=== PATIENT | female | born 1975 | race Caucasian/White ===

== ENCOUNTER 2016-05-26 18:55 | Emergency (ER) | payer MEDICAID ==
[~2016-05-26] VITALS: Ht 152.4 cm; Wt 74.0 kg
[2016-05-26 19:35] VITALS: Ht 152.4 cm; Wt 74.0 kg
--- NOTE | 2016-05-26 21:07 | RADRPT ---
PROCEDURE: US OB. CLINICAL INDICATION: Pelvic pain. History of demise TECHNIQUE: Transabdominal and transvaginal views of the pelvis are available for review. COMPARISON: No prior studies are available for comparison. FINDINGS: The mean gestational sac diameter is 4.3 cm. The gestational sac is irregular. [place]-rump length:2.1 cm heart rate:None Ultrasound estimated gestational age: 9 weeks and 3 days A subchorionic hemorrhage is seen. No ovarian or adnexal mass lesion is seen. There is no free fluid. IMPRESSION: Single intrauterine without evidence of a heart rate, the findings of which are worr isome for demise which is consistent with the clinical history. Subchorionic hemorrhage. RPTAT: HPNM Physician Leland Date Time Electronically viewed and signed by Physician Leland on 05/26/2016 21:06 /
[2016-05-26 22:07] LABS: ADD SCAN DIFF NO
[2016-05-26 22:13] LABS: BASOPHIL # 0.1 10^3/ul (0.0-0.1); BASOPHILS % 0.8 % (0.0-2.0); EOSINOPHILS # 0.3 10^3/ul (0.0-0.5); EOSINOPHILS % 3.7 % (0.0-7.0); HEMATOCRIT 40.4 % (37.0-47.0); HEMOGLOBIN 13.5 g/dl (12.0-16.0); LYMPHOCYTES # 2.5 10^3/ul (0.8-2.9); LYMPHOCYTES % 33.9 % (15.0-51.0); MEAN CORPUSCULAR HEMOGLOBIN 29.4 pg (29.0-33.0); MEAN CORPUSCULAR HGB CONC 33.4 g/dl (32.0-37.0); MONOCYTE # 0.5 10^3/ul (0.3-0.9); NEUTROPHIL # 3.9 10^3/ul (1.6-7.5); NEUTROPHILS % 54.3 % (39.0-77.0); PLATELET COUNT 277 10^3/UL (140-415); RED BLOOD COUNT 4.59 10^6/ul (4.20-5.40); RED CELL DISTRIBUTION WIDTH 14.1 % (11.5-14.5); WHITE BLOOD COUNT 7.3 10^3/ul (4.8-10.8)
--- NOTE | 2016-05-26 22:17 | ERD ---
ER Documentation Chief Complaint Date/Time DATE: 05/26/16 TIME: 22:15 Chief Complaint Headache x3 days HPI Patient is a 40-year-old female who is A1 who presents to the ED for D/C She states that [facility] [place] [facility] and they were sent to go to [place] for D and C. She states that she was sent to go to [place] for D/C, but decided to come here instead because [place] was too far for them and they do not have a car. She states that her last normal menstrual period was 02/18/17. She denies any pelvic pain, vaginal bleeding. She denies abdominal pain, nausea, vomiting or diarrhea. She denies chest pain, cough, shortness of breath or difficulty breathing. Denies leg pain or swelling. No other complaints. ROS All systems reviewed and are negative except as per history of present illness. Allergies Allergies: Coded Allergies: No Known Allergy (Unverified , 05/26/16) PMhx/Soc Medical and Surgical Hx: pt denies Medical Hx, pt denies Surgical Hx Hx Alcohol Use: No Hx Substance Use: No Hx Tobacco Use: No Smoking Status: Never smoker FmHx Family History: No coronary disease, No diabetes, No other Physical Exam Vitals Vital Signs Date Time Temp Pulse Resp B/P Pulse Ox O2 Delivery O2 Flow Rate FiO2 05/26/16 19:35 98.7 70 18 126/62 99 Physical Exam GENERAL: Well-developed, well-nourished female. Appears in no acute distress. LUNG: Clear to auscultation bilaterally. No rhonchi, wheezing, rales or coarse breath sounds. HEART: Regular rate and rhythm. No murmurs, rubs or gallops. ABDOMEN: No scars, ecchymosis or rashes noted. Soft, nontender, and nondistended. Positive bowel sounds in all four quadrants. No rebound tenderness , no guarding. (-) McBurneys point tenderness. No CVA tenderness. BACK: No midline tenderness. Extremities: Equal pulses bilaterally. No peripheral clubbing, cyanosis or edema. No unilateral leg swelling. NEUROLOGIC: Alert and oriented. Moving all four extremities. 5/5 strength in all extremities. Normal speech. Steady gait. SKIN: Normal color. Warm and dry. No rashes or lesions. Capillary refill < 2 seconds Result Diagram: 05/26/160 Results 24 hrs Laboratory Tests Test 05/26/16 21:50 05/26/16 22:00 Basophils # 0.110^3/ul Basophils % 0.8% Beta HCG, Quantitative 215.8mIU/ml Eosinophils # 0.310^3/ul Eosinophils % 3.7% Hematocrit 40.4% Hemoglobin 13.5g/dl Lymphocytes # 2.510^3/ul Lymphocytes % 33.9% Mean Corpuscular Hemoglobin 29.4pg Mean Corpuscular Hemoglobin Concent 33.4g/dl Mean Corpuscular Volume 88.0fl Mean Platelet Volume 11.0fl Monocytes # 0.510^3/ul Monocytes % 7.0% Neutrophils # 3.910^3/ul Neutrophils % 54.3% Nucleated Red Blood Cells # 0.010^3/ul Nucleated Red Blood Cells % 0.0/100WBC Platelet Count 42662^3/UL Red Blood Count 4.5910^6/ul Red Cell Distribution Width 14.1% White Blood Count 7.310^3/ul Urine Bilirubin NEGATIVE Urine Clarity CLEAR Urine Color LT. YELLOW Urine Glucose NEGATIVE% Urine Hemoglobin 2+ Urine Ketones NEGATIVE Urine Leukocyte Esterase NEGATIVE Urine Microscopic RBC 2-5/HPF Urine Microscopic WBC 0-2/HPF Urine Nitrite NEGATIVE Urine Specific [place] 1.015 Urine Squamous Epithelial Cells FEW Urine Total Protein NEGATIVE Urine Urobilinogen 0.2 E.U./dL Urine pH 6.5 Procedures/MDM ER COURSE: I kept the patient and/or family informed of laboratory and diagnostic imaging results throughout the emergency room course. EKG, MONITORS, & DIAGNOSTIC IMAGING: [place] [id number] Radiology Main Line: [phone] DIAGNOSTIC IMAGING REPORT Patient: WENDY JEFFREY : 1975 Age: 40 Sex: F MR #: [id number] DOS: 05/26/162023 Ordering MD: KIMBERLY HANKS PA-C Location: E Room/Bed: PROCEDURE: US OB. CLINICAL INDICATION: Pelvic pain. History of demise TECHNIQUE: Transabdominal and transvaginal views of the pelvis are available for review. COMPARISON: No prior studies are available for comparison. FINDINGS: The mean gestational sac diameter is 4.3 cm. The gestational sac is irregular. [place]-rump length: 2.1 cm heart rate: None Ultrasound estimated gestational age: 9 weeks and 3 days A subchorionic hemorrhage is seen. No ovarian or adnexal mass lesion is seen. There is no free fluid. IMPRESSION: Single intrauterine without evidence of a heart rate, the findings of which are worrisome for demise which is consistent with the clinical history. Subchorionic hemorrhage. RPTAT: HPNM Physician Leland Date Time Electronically viewed and signed by Physician Leland on 05/26/2016 21 :06 / CC: KIMBERLY HANKS PA-C LAB INTERPRETATION: CBC showed no evidence of systemic infection or severe anemia. UA showed no evidence of leukocytes, nitrites or hematuria. Rh: O+, BHCG 215 MEDICAL DECISION MAKING: This is a 4-year-old female who is A1 who presents with ultrasound follow up and procedure. Vital signs were reviewed. Patient is afebrile. Patient is not hypoxic. Ultrasound as read by radiologist shows Single intrauterine without evidence of a heart rate, the findings of which are worrisome for demise which is consistent with the clinical history. Subchorionic hemorrhage. I spoke with Dr. Kelley, laborist computer education professor and reviewed all imaging studies with her. She states that patient can be sent outpatiently and to call her doctor at the clinic to schedule a D/C or to see if she can find a closer place. She stated that this procedure would not be done tonight and they are scheduled during the day. She can return sooner for any worsening symptoms, but that it would not be done tonight. Low suspicion for ovarian torsion, PID, tuboovarian abscess, ectopic , bowel obstruction, pyelonephritis, UTI, appendicitis, cervicitis, septic , molar , HELLP syndrome, preeclampsia, eclampsia, placenta previa, placenta abruptia. DISCHARGE: At this time, patient is stable for discharge and outpatient management with no new complaints during the ER course. Patient was sent home with instructions to call her OB doctor to schedule a closer D and C procedure. I had supervisor concrete block plant explaint ot patient the plan and she understood. Patient stated that she is asymptomatic right now. Patient can return to [facility] earlier for any worsening symptoms and can come during the day tomorrow for possible procedure. Patient is hemodynamically stable. Patient will be discharged home with instructions to recheck for new or worsening symptoms such as fever, nausea, weakness, LOC and to follow up with primary care in the next 1-2 days. Patient was advised to return to the ER for any new or worsening symptoms. Plan was discussed and patient and/or family understands and agrees. Home instructions were given. Departure Diagnosis: Primary Impression: Encounter for laboratory test Condition: Stable KIMBERLY HANKS PA-C May 26, 2016 22:17
[2016-05-26 22:46] LABS: ADD UMIC YES; URINE BILIRUBIN (Dip) NEGATIVE (NEGATIVE); URINE BLOOD (Dip) 2+ (NEGATIVE); URINE COLOR LT. YELLOW (YELLOW); URINE GLUCOSE (Dip) NEGATIVE (NEGATIVE); URINE KETONES (Dip) NEGATIVE (NEGATIVE); URINE LEUKOCYTE ESTERASE (Dip) NEGATIVE (NEGATIVE); URINE NITRITE (Dip) NEGATIVE (NEGATIVE); URINE TOTAL PROTEIN (Dip) NEGATIVE (NEGATIVE); URINE UROBILINOGEN (Dip) 0.2 E.U./dL (0.1-1.0)
[2016-05-26 23:10] LABS: SQUAMOUS EPITHELIAL CELL,UR FEW
[2016-05-27 00:50] VITALS: BP 135/65; PULSE 70; RESP 18; TEMP 98.3
== END 2016-05-27 00:56 | disposition home or self-care (01) ==
LOC: FTE 18:55
DX: O99.89 Other specified diseases and conditions complicating pregnancy, childbirth and the puerperium (principal); R51 Headache; R10.2 Pelvic and perineal pain; Z3A.09 9 weeks gestation of pregnancy
CPT/HCPCS: 36415; 76805; 81001; 84702; 85025; 86900; 86901; Z7502; 81003